=== PATIENT | female | born 1950 | race Caucasian/White ===

== ENCOUNTER 2021-12-12 06:44 | Day surgery (SDC) | payer OTHER ==
[2021-12-11 14:37] VITALS: BMI 38.4
[~2021-12-12 06:44] MED LIST: ACETAMINOPHEN 325 MG TABLET (FP) PO PRN; BSS (NA/CA/MG/K) BALANCED SALT SOLUTION OPHTH SOLN 15 ML BOTTLE OD ONE; BUPIVACAINE HCL/PF 0.75% 10 ML VIAL RB ONE; CHONDROITIN SU A/HYALUR SOD 1 KIT IO ONE; CYCLOPENTOLATE HCL 1% OPHTH SOLN 2 ML BOTTLE OP SCH; EPINEPHrine/PF 1 MG/1 ML (1:1,000) AMPULE SQ ONE; KETOROLAC TROMETHAMINE 0.5% EYE DROP 1 DROP DROPS OP SCH; LIDOCAINE 1% P/F 10 MG/ML VIAL PNB ONE; LIDOCAINE HCL/PF 2% SDV 5ML VIAL PNB ONE; OFLOXACIN 0.3% OPHTHALMIC SOLUTION 5 ML BOTTLE OP SCH; PHENYLEPHRINE 2.5% OPHTH SOLN 15 ML BOTTLE OP SCH; POVIDONE-IODINE 5% OPHTHALMIC PREP 30 ML SOLUTION OD ONE; TETRACAINE 0.5% OPHTH SOLN 2 ML BOTTLE OD ONE; TROPICAMIDE 1% OPHTH SOLN 15 ML BOTTLE OP SCH; TRYPAN BLUE 0.5 ML DISP.SYRIN IO ONE
[2021-12-12] MEDS ORDERED: BUPIVACAINE HCL/PF 0.75% 10 ML VIAL ONE (07:25)
[2021-12-12] MEDS ORDERED: EPINEPHrine/PF 1 MG/1 ML (1:1,000) AMPULE ONE (07:25)
[2021-12-12] MEDS ORDERED: POVIDONE-IODINE 5% OPHTHALMIC PREP 30 ML SOLUTION ONE (07:26)
[2021-12-12] MEDS ORDERED: TETRACAINE 0.5% OPHTH SOLN 2 ML BOTTLE ONE (07:26)
[2021-12-12] MEDS ORDERED: TRYPAN BLUE 0.5 ML DISP.SYRIN ONE (07:26)
[2021-12-12] MEDS ORDERED: LIDOCAINE HCL/PF 1% SDV 5ML VIAL ONE (07:28)
[2021-12-12] MEDS ORDERED: LIDOCAINE HCL/PF 2% SDV 5ML VIAL ONE (07:29)
[2021-12-12] MEDS ORDERED: KETOROLAC TROMETHAMINE 0.5% EYE DROP 1 DROP DROPS OD ONE ×3 (08:15→08:25)
[2021-12-12] MEDS ORDERED: PHENYLEPHRINE 2.5% OPTHALMIC DROP BOTTLE OD ONE (08:15)
[2021-12-12] MEDS ORDERED: TROPICAMIDE 0.5% OPHTHALMIC SOLN 15 ML BOTTLE OD ONE ×3 (08:15→08:25)
[2021-12-12] MEDS ORDERED: CYCLOPENTOLATE HCL 1% OPHTH SOLN 2 ML BOTTLE OD ONE ×3 (08:15→08:25)
[2021-12-12] MEDS ORDERED: OFLOXACIN 0.3% OPHTHALMIC SOLUTION 5 ML BOTTLE OD ONE ×3 (08:15→08:25)
[2021-12-12 08:20] VITALS: RESP 18
[2021-12-12] MEDS ORDERED: PHENYLEPHRINE 2.5% OPHTH SOLN 15 ML BOTTLE OD ONE ×2 (08:20→08:25)
[2021-12-12] MEDS ORDERED: PROPOFOL 20 ML ONE (10:21)
[2021-12-12] MEDS ORDERED: MIDAZOLAM HCL 2 MG/2 ML SINGLE DOSE VIAL ONE (10:22)
[2021-12-12] MEDS ORDERED: LIDOCAINE HCL/PF 2% SDV 5ML VIAL PNB ONE (10:29)
[2021-12-12] MEDS ORDERED: BUPIVACAINE HCL/PF 0.75% 10 ML VIAL RB ONE (10:29)
[2021-12-12] MEDS ORDERED: POVIDONE-IODINE 5% OPHTHALMIC PREP 30 ML SOLUTION OD ONE (10:32)
[2021-12-12] MEDS ORDERED: BSS (NA/CA/MG/K) BALANCED SALT SOLUTION OPHTH SOLN 15 ML BOTTLE OD ONE (10:38)
[2021-12-12] MEDS ORDERED: LIDOCAINE 1% P/F 10 MG/ML VIAL PNB ONE (10:39)
[2021-12-12] MEDS ORDERED: TRYPAN BLUE 0.5 ML DISP.SYRIN IO ONE (10:40)
[2021-12-12] MEDS ORDERED: CHONDROITIN SU A/HYALUR SOD 1 KIT IO ONE (10:41)
[2021-12-12] MEDS ORDERED: EPINEPHrine/PF 1 MG/1 ML (1:1,000) AMPULE SQ ONE (10:45)
[2021-12-12 12:52] VITALS: BP 149/59; PULSE 97; TEMP 98.3
== END 2021-12-12 12:22 | disposition home or self-care (01) ==
LOC: JASU-SURG 06:44
PROVIDERS: ATTEND Ophthalmology
PROC: 08RJ3JZ Replacement of Right Lens with Synthetic Substitute, Percutaneous Approach (ICD-10-PCS; principal; 2021-12-12 10:00)
DX: H26.9 Unspecified cataract (principal)
CPT/HCPCS: 82962

== ENCOUNTER 2023-09-16 13:04 | Inpatient (IN) | payer OTHER ==
[2023-09-16 13:33] VITALS: BMI 44.9
[2023-09-16] MEDS ORDERED: ACETAMINOPHEN 325 MG TABLET (FP) ONE (14:16)
[2023-09-16] MEDS: ACETAMINOPHEN 500 MG TABLET (FP) PO ONE (14:26)
[2023-09-16] MEDS ORDERED: ACETAMINOPHEN 1000 MG/100 ML BAG IVPB ONE (14:29)
[2023-09-16 14:56] LABS: BASO % 0.3 % (0-2.0); EOS % 0.7 % (0-4.5); HEMATOCRIT 32.6 % (32.4-45.2); HEMOGLOBIN 10.5 GM/dL (10.7-15.3); LYMPH % 7.6 % (8-40); MCH 25.9 pg (25.7-33.7); MCHC 32.3 g/dl (32.0-36.0); MEAN CELL VOLUME 80.3 fl (80-96); MEAN PLT VOLUME 7.3 fl (7.5-11.1); MONO % 4.1 % (3.8-10.2); NEUT % 87.3 % (42.8-82.8); PLATELET COUNT 342 10^3/uL (134-434); RBC 4.06 M/mm3 (3.60-5.2); RDW 15.2 % (11.6-15.6); WHITE BLOOD COUNT 13.5 K/mm3 (4.0-10.0)
[2023-09-16 15:13] LABS: POTASSIUM 4.1 mmol/L (3.5-5.1)
[2023-09-16 15:15] LABS: CALCIUM 9.2 mg/dL (8.5-10.1)
[2023-09-16 15:16] LABS: ALBUMIN 3.1 g/dl (3.4-5.0); BLOOD UREA NITROGEN 19.9 mg/dL (7-18)
[2023-09-16 15:19] LABS: CREATININE 1.2 mg/dL (0.55-1.3)
[2023-09-16 15:20] LABS: BILIRUBIN,TOTAL 0.4 mg/dL (0.2-1)
[2023-09-16 15:21] LABS: TOT PROT 7.2 g/dl (6.4-8.2)
[2023-09-16] MEDS ORDERED: morphine SULFATE 4 MG/ML VIAL ONE ×2 (15:30→18:00)
[2023-09-16] MEDS: morphine CARPU-JECT 4 MG/1 ML DISP.SYRIN IVPUSH ONE ×2 (15:43→18:00)
[2023-09-16] MEDS ORDERED: DALBAVANCIN HCL 500 MG VIAL (RESTRICTED TO ID ONLY) IVPB ONE (16:37)
[2023-09-16] MEDS ORDERED: morphine CARPU-JECT 2 MG/1 ML DISP.SYRIN IVPUSH PRN (17:38)
[2023-09-16 20:00] LABS: INR 1.05 (0.83-1.09); PROTHROMBIN TIME (PATIENT) 12.1 SEC (9.7-13.0)
[2023-09-16] MEDS: ACETAMINOPHEN 1000 MG/100 ML BAG IVPB SCH (23:00)
[2023-09-17] MEDS: ATORVASTATIN CA 20 MG TABLET (FP) PO SCH (00:05)
[2023-09-17 08:29] LABS: HEMATOCRIT 31.2 % (32.4-45.2); HEMOGLOBIN 10.3 GM/dL (10.7-15.3); MCH 26.8 pg (25.7-33.7); MCHC 33.2 g/dl (32.0-36.0); MEAN CELL VOLUME 80.9 fl (80-96); MEAN PLT VOLUME 7.7 fl (7.5-11.1); PLATELET COUNT 312 10^3/uL (134-434); RBC 3.86 M/mm3 (3.60-5.2); RDW 15.4 % (11.6-15.6); WHITE BLOOD COUNT 9.6 K/mm3 (4.0-10.0)
[2023-09-17 08:38] LABS: INR 1.11 (0.83-1.09); PROTHROMBIN TIME (PATIENT) 12.5 SEC (9.7-13.0)
[2023-09-17 09:27] LABS: POTASSIUM 4.4 mmol/L (3.5-5.1)
[2023-09-17 09:29] LABS: BLOOD UREA NITROGEN 14.8 mg/dL (7-18); CALCIUM 8.7 mg/dL (8.5-10.1); MAGNESIUM 1.9 mg/dL (1.8-2.4)
[2023-09-17 09:32] LABS: CREATININE 0.9 mg/dL (0.55-1.3); PHOSPHOROUS 3.2 mg/dL (2.5-4.9)
[2023-09-17] MEDS: VALSARTAN 160 MG TABLET PO SCH (10:09)
[2023-09-17] MEDS: CALCIUM 500MG/VIT-D 200 UNITS COMBO TABLET (FP) PO SCH (10:09)
[2023-09-17] MEDS: amLODIPine BESYLATE 10 MG TABLET (FP) PO SCH (10:09)
[2023-09-17] MEDS: ASCORBIC ACID 500 MG TABLET (FP) PO SCH (10:10)
[2023-09-17] MEDS: MULTIVITAMINS (DAILY MVI) TABLET (FP) PO SCH (10:10)
[2023-09-17] MEDS: POLYETHYLENE GLYCOL (HEALTHYLAX) 3350 17 GM PACKET PO SCH (10:10)
[2023-09-17] MEDS: DEXTROSE 5%-NORMAL SALINE 1,000 ML IV SCH (13:33)
[2023-09-17 20:47] LABS: EPI CELLS 13 /uL (0-25.1); HYALINE CASTS 0 /uL (0-3.1); URINE APPEARANCE CLOUDY; URINE BACTERIA >9,000 /uL (0-1359); URINE BILIRUBIN NEGATIVE (NEGATIVE); URINE COLOR YELLOW; URINE GLUCOSE (UA) NEGATIVE (NEGATIVE); URINE KETONE NEGATIVE (NEGATIVE); URINE LEUK ESTERASE NEGATIVE (NEGATIVE); URINE NITRITE POSITIVE (NEGATIVE); URINE PROTEIN NEGATIVE (NEGATIVE); URINE UROBILINOGEN 0.2 mg/dL (0.2-1.0); URINE WBC 2 /uL (0-25.8)
[2023-09-18] MEDS: amLODIPine BESYLATE 10 MG TABLET (FP) PO ONE (07:16)
[2023-09-18] MEDS: [UNRECOGNIZED DRUG - OTHER] PO SCH (08:43)
[2023-09-18 09:41] LABS: HEMATOCRIT 30.8 % (32.4-45.2); HEMOGLOBIN 10.2 GM/dL (10.7-15.3); MCH 26.5 pg (25.7-33.7); MCHC 33.1 g/dl (32.0-36.0); MEAN CELL VOLUME 80.2 fl (80-96); MEAN PLT VOLUME 7.8 fl (7.5-11.1); PLATELET COUNT 285 10^3/uL (134-434); RBC 3.84 M/mm3 (3.60-5.2); RDW 15.5 % (11.6-15.6); WHITE BLOOD COUNT 11.3 K/mm3 (4.0-10.0)
[2023-09-18 09:42] LABS: POTASSIUM 3.8 mmol/L (3.5-5.1)
[2023-09-18 09:51] LABS: ALBUMIN 2.6 g/dl (3.4-5.0); BLOOD UREA NITROGEN 14.5 mg/dL (7-18)
[2023-09-18 09:57] LABS: CREATININE 0.9 mg/dL (0.55-1.3)
[2023-09-18 09:59] LABS: BILIRUBIN,TOTAL 0.6 mg/dL (0.2-1)
[2023-09-18 10:07] LABS: TOT PROT 6.3 g/dl (6.4-8.2)
[2023-09-18] MEDS: ATORVASTATIN CA 20 MG TABLET (FP) PO SCH (10:20)
[2023-09-18] MEDS ORDERED: SUCCINYLCHOLINE CHLORIDE 200 MG/10 ML SYRINGE ONE (12:44)
[2023-09-18] MEDS ORDERED: PROPOFOL 20 ML ONE (12:44)
[2023-09-18] MEDS ORDERED: MIDAZOLAM HCL 2 MG/2 ML SINGLE DOSE VIAL ONE (12:45)
[2023-09-18] MEDS: ceFAZolin SODIUM 1 GM VIAL IVPB ONE (13:35)
[2023-09-18] MEDS ORDERED: oxyCODONE HCL 5 MG TABLET PO PRN (14:38)
[2023-09-18] MEDS ORDERED: MAGNESIUM SULF 50% (8.12 MEQ/2 ML-1 GM VIAL) ONE (14:43)
[2023-09-18] MEDS ORDERED: LACTATED RINGERS SOLUTION 1,000 ML IV SCH (14:45)
[2023-09-18] MEDS ORDERED: ONDANSETRON 4 MG/2 ML VIAL IVPUSH PRN (15:05)
[2023-09-18] MEDS: DEXTROSE 5%-NORMAL SALINE 1,000 ML IV SCH (19:14)
[2023-09-18] MEDS ORDERED: CEFAZOLIN SODIUM 2 GM in DEXTROSE 5%-WATER 100 ML IVPB SCH (22:00)
[2023-09-18] MEDS: CEFAZOLIN SODIUM 2 GM in DEXTROSE 5%-WATER 100 ML IVPB SCH (22:22)
[2023-09-18] MEDS: CALCIUM 500MG/VIT-D 200 UNITS COMBO TABLET (FP) PO SCH (22:23)
[2023-09-19] MEDS: oxyCODONE HCL 5 MG TABLET PO PRN (05:28)
[2023-09-19] MEDS ORDERED: amLODIPine BESYLATE 10 MG TABLET (FP) PO SCH (10:00)
[2023-09-19] MEDS ORDERED: ENOXAPARIN NA (PORCINE) 40 MG/0.4 ML DISP.SYRIN SQ SCH (10:00)
[2023-09-19] MEDS: MULTIVITAMINS (DAILY MVI) TABLET (FP) PO SCH (10:02)
[2023-09-19] MEDS: VALSARTAN 160 MG TABLET PO SCH (10:03)
[2023-09-19] MEDS: amLODIPine BESYLATE 10 MG TABLET (FP) PO SCH (10:03)
[2023-09-19] MEDS: ENOXAPARIN NA (PORCINE) 40 MG/0.4 ML DISP.SYRIN SQ SCH (10:05)
[2023-09-19] MEDS: ASCORBIC ACID 500 MG TABLET (FP) PO SCH (10:05)
[2023-09-19] MEDS: CEFTRIAXONE 1 GM in DEXTROSE 5%-WATER - 50 ML IVPB SCH (10:05)
[2023-09-19] MEDS: POLYETHYLENE GLYCOL (HEALTHYLAX) 3350 17 GM PACKET PO SCH (10:06)
[2023-09-19 10:54] LABS: HEMATOCRIT 24.1 % (32.4-45.2); HEMOGLOBIN 7.9 GM/dL (10.7-15.3); MCH 27.1 pg (25.7-33.7); MEAN CELL VOLUME 82.1 fl (80-96); PLATELET COUNT 236 10^3/uL (134-434); RBC 2.93 M/mm3 (3.60-5.2); RDW 15.1 % (11.6-15.6); WHITE BLOOD COUNT 9.4 K/mm3 (4.0-10.0)
[2023-09-19 11:11] LABS: POTASSIUM 4.3 mmol/L (3.5-5.1)
[2023-09-19 11:18] LABS: BLOOD UREA NITROGEN 19.7 mg/dL (7-18); CALCIUM 7.8 mg/dL (8.5-10.1)
[2023-09-19 11:21] LABS: CREATININE 1.3 mg/dL (0.55-1.3)
[2023-09-19] MEDS: INSULIN ASPART SLIDING SCALE (NOVOLOG) 1 VIAL SQ SCH (17:20)
[2023-09-19] MEDS: ACETAMINOPHEN 1000 MG/100 ML BAG IVPB ONE (23:07)
[2023-09-20 10:07] LABS: BASO % 0.3 % (0-2.0); EOS % 1.7 % (0-4.5); HEMATOCRIT 22.5 % (32.4-45.2); HEMOGLOBIN 7.3 GM/dL (10.7-15.3); LYMPH % 11.4 % (8-40); MCH 26.9 pg (25.7-33.7); MCHC 32.5 g/dl (32.0-36.0); MEAN CELL VOLUME 82.7 fl (80-96); MONO % 7.4 % (3.8-10.2); NEUT % 79.2 % (42.8-82.8); PLATELET COUNT 230 10^3/uL (134-434); RBC 2.72 M/mm3 (3.60-5.2); RDW 15.3 % (11.6-15.6); WHITE BLOOD COUNT 10.1 K/mm3 (4.0-10.0)
[2023-09-20 10:08] LABS: HEMATOCRIT 22.9 % (32.4-45.2); HEMOGLOBIN 7.4 GM/dL (10.7-15.3); MCH 26.8 pg (25.7-33.7); MCHC 32.4 g/dl (32.0-36.0); MEAN CELL VOLUME 82.9 fl (80-96); PLATELET COUNT 238 10^3/uL (134-434); RBC 2.76 M/mm3 (3.60-5.2); RDW 15.1 % (11.6-15.6); WHITE BLOOD COUNT 9.7 K/mm3 (4.0-10.0)
[2023-09-20 10:27] LABS: POTASSIUM 4.6 mmol/L (3.5-5.1)
[2023-09-20 10:32] LABS: BLOOD UREA NITROGEN 26.8 mg/dL (7-18)
[2023-09-20 10:33] LABS: CALCIUM 8.1 mg/dL (8.5-10.1)
[2023-09-20 10:34] LABS: ALBUMIN 1.8 g/dl (3.4-5.0)
[2023-09-20 10:36] LABS: CREATININE 1.2 mg/dL (0.55-1.3)
[2023-09-20 10:37] LABS: BILIRUBIN,TOTAL 0.6 mg/dL (0.2-1); TOT PROT 5.4 g/dl (6.4-8.2)
[2023-09-20] MEDS: ACETAMINOPHEN 325 MG TABLET (FP) PO PRN (14:35)
[2023-09-21 10:00] LABS: BASO % 0.7 % (0-2.0); EOS % 2.9 % (0-4.5); HEMATOCRIT 23.6 % (32.4-45.2); HEMOGLOBIN 7.9 GM/dL (10.7-15.3); LYMPH % 10.9 % (8-40); MCH 27.3 pg (25.7-33.7); MCHC 33.6 g/dl (32.0-36.0); MEAN CELL VOLUME 81.2 fl (80-96); MEAN PLT VOLUME 8.1 fl (7.5-11.1); MONO % 5.3 % (3.8-10.2); NEUT % 80.2 % (42.8-82.8); PLATELET COUNT 282 10^3/uL (134-434); RBC 2.91 M/mm3 (3.60-5.2); RDW 15.3 % (11.6-15.6)
[2023-09-21 10:13] LABS: POTASSIUM 4.5 mmol/L (3.5-5.1)
[2023-09-21 10:15] LABS: CALCIUM 8.3 mg/dL (8.5-10.1)
[2023-09-21 10:16] LABS: ALBUMIN 1.8 g/dl (3.4-5.0); BLOOD UREA NITROGEN 18.6 mg/dL (7-18)
[2023-09-21 10:19] LABS: CREATININE 0.8 mg/dL (0.55-1.3)
[2023-09-21 10:20] LABS: TOT PROT 5.4 g/dl (6.4-8.2)
[2023-09-21 10:21] LABS: BILIRUBIN,TOTAL 0.6 mg/dL (0.2-1)
[2023-09-21] MEDS: IRON SUCROSE INJECTION 200 MG in SODIUM CHLORIDE 100 ML IVPB ONE (21:26)
[2023-09-22] MEDS ORDERED: cefTRIAXone SODIUM 1 GM VIAL ONE (10:32)
[2023-09-22 12:53] LABS: BASO % 0.8 % (0-2.0); EOS % 2.9 % (0-4.5); LYMPH % 16.9 % (8-40); MCH 26.9 pg (25.7-33.7); MCHC 33.4 g/dl (32.0-36.0); MEAN CELL VOLUME 80.7 fl (80-96); MEAN PLT VOLUME 7.5 fl (7.5-11.1); MONO % 7.2 % (3.8-10.2); NEUT % 72.2 % (42.8-82.8); PLATELET COUNT 357 10^3/uL (134-434); RBC 2.97 M/mm3 (3.60-5.2); RDW 15.2 % (11.6-15.6); WHITE BLOOD COUNT 8.3 K/mm3 (4.0-10.0)
[2023-09-22 14:04] LABS: POTASSIUM 4.3 mmol/L (3.5-5.1)
[2023-09-22 14:06] LABS: ALBUMIN 1.8 g/dl (3.4-5.0); BLOOD UREA NITROGEN 17.1 mg/dL (7-18); CALCIUM 8.9 mg/dL (8.5-10.1)
[2023-09-22 14:12] LABS: BILIRUBIN,TOTAL 0.4 mg/dL (0.2-1); TOT PROT 5.4 g/dl (6.4-8.2)
[2023-09-22 14:15] LABS: CREATININE 0.8 mg/dL (0.55-1.3)
[2023-09-23 16:00] VITALS: RESP 20
[2023-09-24 14:50] VITALS: BP 136/55; PULSE 97; TEMP 98.6
[2023-09-25] MEDS ORDERED: CEPHALEXIN MONOHYDRATE 500 MG CAPSULE (UD) PO SCH (10:00)
== END 2023-09-25 02:30 | DRG 481 ==
LOC: JER 13:04 → JERBED 17:02 → J8W 20:50 → J6S 09-18 19:26
PROVIDERS: ADMIT Internal Medicine; ATTEND Family Medicine
PROC: 0QS606Z Reposition Right Upper Femur with Intramedullary Internal Fixation Device, Open Approach (ICD-10-PCS; principal; 2023-09-16)
PROC: 30233N1 Transfusion of Nonautologous Red Blood Cells into Peripheral Vein, Percutaneous Approach (ICD-10-PCS; 2023-09-20)
DX: S72.141A Displaced intertrochanteric fracture of right femur, initial encounter for closed fracture (principal); J98.11 Atelectasis; N39.0 Urinary tract infection, site not specified; I10 Essential (primary) hypertension; E11.9 Type 2 diabetes mellitus without complications; D72.829 Elevated white blood cell count, unspecified; M25.561 Pain in right knee; E78.5 Hyperlipidemia, unspecified; J45.909 Unspecified asthma, uncomplicated; D64.9 Anemia, unspecified; B96.20 Unspecified Escherichia coli [E. coli] as the cause of diseases classified elsewhere; B96.4 Proteus (mirabilis) (morganii) as the cause of diseases classified elsewhere; G47.33 Obstructive sleep apnea (adult) (pediatric); R50.82 Postprocedural fever; W01.0XXA Fall on same level from slipping, tripping and stumbling without subsequent striking against object, initial encounter; Y92.480 Sidewalk as the place of occurrence of the external cause; Y99.9 Unspecified external cause status
CPT/HCPCS: 0241U-QW; 36415; 36430; 71045-TC-FY; 72170-TC-FY; 73502-TC-RT-FY; 73564-TC-RT-FY; 76000-TC-FY; 80048; 80053; 81003; 82728; 82962; 83540; 83550; 83735; 84100; 84466; 85025; 85027; 85610; 85730; 86850; 86900; 86901; 86922; 87040; 87086; 87186; 87635; 93005; 93010; 93970-TC; 93971-TC; 94760; 97116-GP; 97162-GP; 99285-25; C1713; J0131; J1756; P9038; P9058

== ENCOUNTER 2023-09-25 22:08 | Inpatient (IN) | payer OTHER ==
[2023-09-26 00:04] LABS: HEMATOCRIT 15.8 % (32.4-45.2); MCH 27.2 pg (25.7-33.7); MCHC 33.2 g/dl (32.0-36.0); MEAN PLT VOLUME 6.9 fl (7.5-11.1); PLATELET COUNT 474 10^3/uL (134-434); RBC 1.93 M/mm3 (3.60-5.2); RDW 15.8 % (11.6-15.6); WHITE BLOOD COUNT 12.7 K/mm3 (4.0-10.0)
[2023-09-26 00:30] LABS: POTASSIUM 3.9 mmol/L (3.5-5.1)
[2023-09-26 00:32] LABS: ALBUMIN 1.7 g/dl (3.4-5.0); BLOOD UREA NITROGEN 40.6 mg/dL (7-18)
[2023-09-26 00:35] LABS: CREATININE 0.9 mg/dL (0.55-1.3)
[2023-09-26 00:37] LABS: BILIRUBIN,TOTAL 0.4 mg/dL (0.2-1); HEMOGLOBIN 5.2 GM/dL (10.7-15.3)
[2023-09-26 00:48] LABS: INR 1.19 (0.83-1.09); PROTHROMBIN TIME (PATIENT) 13.4 SEC (9.7-13.0)
[2023-09-26 00:51] LABS: ACTIVATED PTT 26.7 SECONDS (25.2-36.5)
[2023-09-26] MEDS ORDERED: ACETAMINOPHEN INJECTION 100 ML IVPB ONE (02:16)
[2023-09-26] MEDS ORDERED: FAMOTIDINE 20 MG/50 ML IVPB 20 MG/50 ML MG IVPB ONE (02:16)
[2023-09-26] MEDS: FAMOTIDINE 20 MG/50 ML IVPB 20 MG/50 ML MG IVPB ONE (02:20)
[2023-09-26] MEDS: ACETAMINOPHEN 1000 MG/100 ML BAG IVPB ONE (02:20)
[2023-09-26 05:17] LABS: ANISOCYTOSIS 3+; MACROCYTOSIS 0; ROULEAU 1+
[2023-09-26] MEDS: INSULIN ASPART SLIDING SCALE (NOVOLOG) 1 VIAL SQ SCH (11:59)
[2023-09-26] MEDS: MULTIVITAMINS (DAILY MVI) TABLET (FP) PO SCH (12:00)
[2023-09-26] MEDS: ASCORBIC ACID 500 MG TABLET (FP) PO SCH (12:00)
[2023-09-26] MEDS: PANTOPRAZOLE SODIUM 40 MG VIAL IVPUSH SCH (12:01)
[2023-09-26 12:17] LABS: HEMATOCRIT 19.7 % (32.4-45.2); MCH 27.5 pg (25.7-33.7); MCHC 32.5 g/dl (32.0-36.0); MEAN CELL VOLUME 84.6 fl (80-96); MEAN PLT VOLUME 7.1 fl (7.5-11.1); PLATELET COUNT 478 10^3/uL (134-434); RBC 2.33 M/mm3 (3.60-5.2); RDW 16.1 % (11.6-15.6)
[2023-09-26 12:21] LABS: HEMOGLOBIN 6.4 GM/dL (10.7-15.3)
[2023-09-26 12:54] LABS: ANISOCYTOSIS 2+; MACROCYTOSIS 0; ROULEAU 1+
[2023-09-26 12:58] LABS: PLATELET ESTIMATE SLT INCREASE
[2023-09-26 20:14] LABS: HEMATOCRIT 19.9 % (32.4-45.2); MCH 28.8 pg (25.7-33.7); MCHC 33.8 g/dl (32.0-36.0); MEAN CELL VOLUME 85.4 fl (80-96); MEAN PLT VOLUME 7.1 fl (7.5-11.1); PLATELET COUNT 418 10^3/uL (134-434); RBC 2.33 M/mm3 (3.60-5.2); WHITE BLOOD COUNT 12.5 K/mm3 (4.0-10.0)
[2023-09-26 20:51] LABS: HEMOGLOBIN 6.7 GM/dL (10.7-15.3)
[2023-09-26] MEDS: ATORVASTATIN CA 20 MG TABLET (FP) PO SCH (22:04)
[2023-09-27 12:52] LABS: BASO % 0.7 % (0-2.0); EOS % 3.2 % (0-4.5); HEMATOCRIT 23.4 % (32.4-45.2); HEMOGLOBIN 7.9 GM/dL (10.7-15.3); LYMPH % 15.6 % (8-40); MCH 28.6 pg (25.7-33.7); MCHC 33.8 g/dl (32.0-36.0); MEAN CELL VOLUME 84.6 fl (80-96); MONO % 5.6 % (3.8-10.2); NEUT % 74.9 % (42.8-82.8); PLATELET COUNT 553 10^3/uL (134-434); RBC 2.77 M/mm3 (3.60-5.2); RDW 15.9 % (11.6-15.6)
[2023-09-27 13:13] LABS: POTASSIUM 4.3 mmol/L (3.5-5.1)
[2023-09-27 13:17] LABS: BLOOD UREA NITROGEN 25.4 mg/dL (7-18); CALCIUM 8.5 mg/dL (8.5-10.1); MAGNESIUM 1.9 mg/dL (1.8-2.4)
[2023-09-27 13:21] LABS: CREATININE 0.8 mg/dL (0.55-1.3); PHOSPHOROUS 3.5 mg/dL (2.5-4.9)
[2023-09-27] MEDS: MAG HYDROX/AL HYDROX/SIMETH 30 ML UNIT-DOSE CUP PO SCH (15:02)
[2023-09-27] MEDS: IRON SUCROSE INJECTION 200 MG in SODIUM CHLORIDE 100 ML IVPB ONE (16:48)
[2023-09-28 10:12] LABS: BASO % 1.1 % (0-2.0); EOS % 4.8 % (0-4.5); HEMATOCRIT 23.4 % (32.4-45.2); HEMOGLOBIN 7.9 GM/dL (10.7-15.3); LYMPH % 20.9 % (8-40); MCH 28.9 pg (25.7-33.7); MCHC 33.7 g/dl (32.0-36.0); MEAN CELL VOLUME 85.9 fl (80-96); MEAN PLT VOLUME 6.9 fl (7.5-11.1); MONO % 8.4 % (3.8-10.2); NEUT % 64.8 % (42.8-82.8); PLATELET COUNT 591 10^3/uL (134-434); RBC 2.73 M/mm3 (3.60-5.2); RDW 16.1 % (11.6-15.6); WHITE BLOOD COUNT 7.7 K/mm3 (4.0-10.0)
[2023-09-28 10:25] LABS: POTASSIUM 4.2 mmol/L (3.5-5.1)
[2023-09-28 10:34] LABS: CALCIUM 8.3 mg/dL (8.5-10.1)
[2023-09-28 10:35] LABS: BLOOD UREA NITROGEN 14.3 mg/dL (7-18)
[2023-09-28 10:38] LABS: CREATININE 0.8 mg/dL (0.55-1.3)
[2023-09-28] MEDS: IRON SUCROSE INJECTION 200 MG in SODIUM CHLORIDE 100 ML IVPB ONE (16:16)
[2023-09-29 10:01] VITALS: BMI 39.3
[2023-09-29 10:48] LABS: BASO % 0.9 % (0-2.0); EOS % 3.1 % (0-4.5); HEMATOCRIT 23.8 % (32.4-45.2); LYMPH % 24.9 % (8-40); MCH 29.7 pg (25.7-33.7); MCHC 33.7 g/dl (32.0-36.0); MONO % 8.1 % (3.8-10.2); PLATELET COUNT 528 10^3/uL (134-434); RDW 16.2 % (11.6-15.6); WHITE BLOOD COUNT 7.8 K/mm3 (4.0-10.0)
[2023-09-29 10:59] LABS: POTASSIUM 4.2 mmol/L (3.5-5.1)
[2023-09-29 11:01] LABS: BLOOD UREA NITROGEN 11.4 mg/dL (7-18); CALCIUM 7.8 mg/dL (8.5-10.1)
[2023-09-29 11:05] LABS: CREATININE 0.9 mg/dL (0.55-1.3)
[2023-09-29 11:06] LABS: BILIRUBIN,TOTAL 0.6 mg/dL (0.2-1); TOT PROT 5.7 g/dl (6.4-8.2)
[2023-09-29] MEDS ORDERED: PANTOPRAZOLE 40 MG TABLET PO SCH (22:00)
[2023-09-30 09:30] LABS: BASO % 0.8 % (0-2.0); EOS % 3.9 % (0-4.5); HEMATOCRIT 25.6 % (32.4-45.2); HEMOGLOBIN 8.6 GM/dL (10.7-15.3); LYMPH % 25.9 % (8-40); MCH 29.6 pg (25.7-33.7); MCHC 33.5 g/dl (32.0-36.0); MEAN CELL VOLUME 88.2 fl (80-96); MEAN PLT VOLUME 6.8 fl (7.5-11.1); MONO % 7.4 % (3.8-10.2); PLATELET COUNT 528 10^3/uL (134-434); RBC 2.91 M/mm3 (3.60-5.2); RDW 17.3 % (11.6-15.6); WHITE BLOOD COUNT 7.7 K/mm3 (4.0-10.0)
[2023-09-30 09:45] LABS: POTASSIUM 4.5 mmol/L (3.5-5.1)
[2023-09-30 09:47] LABS: CALCIUM 8.3 mg/dL (8.5-10.1)
[2023-09-30 09:48] LABS: ALBUMIN 2.2 g/dl (3.4-5.0); BLOOD UREA NITROGEN 12.8 mg/dL (7-18)
[2023-09-30 09:51] LABS: CREATININE 0.9 mg/dL (0.55-1.3)
[2023-09-30 09:52] LABS: BILIRUBIN,TOTAL 0.6 mg/dL (0.2-1)
[2023-09-30] MEDS: PANTOPRAZOLE 40 MG TABLET PO SCH (10:08)
[2023-09-30] MEDS: HEPARIN NA (PORCINE) 5,000 UNITS/ML 1ML VIAL SQ SCH (22:26)
[2023-10-01] MEDS: ACETAMINOPHEN 325 MG TABLET (FP) PO PRN (22:18)
[2023-10-02 16:40] VITALS: BP 112/53; PULSE 90; RESP 16; TEMP 98.1
== END 2023-10-02 16:00 | DRG 379 ==
LOC: JER 22:08 → JERBED 09-26 06:44 → J5S 09-26 09:09
PROVIDERS: ADMIT Internal Medicine; ATTEND Internal Medicine
PROC: 0DB68ZX Excision of Stomach, Via Natural or Artificial Opening Endoscopic, Diagnostic (ICD-10-PCS; 2023-09-26)
PROC: 30233N1 Transfusion of Nonautologous Red Blood Cells into Peripheral Vein, Percutaneous Approach (ICD-10-PCS; 2023-09-26)
PROC: 0DB98ZX Excision of Duodenum, Via Natural or Artificial Opening Endoscopic, Diagnostic (ICD-10-PCS; principal; 2023-09-26 15:00)
DX: K26.4 Chronic or unspecified duodenal ulcer with hemorrhage (principal); I10 Essential (primary) hypertension; E78.5 Hyperlipidemia, unspecified; E11.9 Type 2 diabetes mellitus without complications; J45.909 Unspecified asthma, uncomplicated; D72.829 Elevated white blood cell count, unspecified; K20.80 Other esophagitis without bleeding; K29.60 Other gastritis without bleeding; D50.9 Iron deficiency anemia, unspecified; Z85.42 Personal history of malignant neoplasm of other parts of uterus
CPT/HCPCS: 0241U-QW; 36415; 36430; 80048; 80053; 82272; 82962; 83735; 84100; 85025; 85027; 85045; 85610; 85730; 86850; 86900; 86901; 86922; 87086; 87186; 88305-TC; 93306-TC; 97116-GP; 97161-GP; 99285-25; J0131; J1644; J1756; P9038; P9058